=== PATIENT | female | born 1965 | race Caucasian/White ===

== ENCOUNTER → 2024-10-13 14:15 | Outpatient (REF) | payer BC, SELFPAY | LOC: RCS 14:15 | PROVIDERS: ATTENDING PHYSICIAN Internal Medicine; FAMILY PHYSICIAN Family Medicine | DX: R60.9 Edema, unspecified (principal); R07.9 Chest pain, unspecified; R06.09 Other forms of dyspnea; R00.2 Palpitations; R94.31 Abnormal electrocardiogram [ECG] [EKG] | CPT/HCPCS: 93306 ==

== ENCOUNTER → 2024-10-20 08:44 | Outpatient (REF) | payer BC, SELFPAY | LOC: RCS 08:44 | PROVIDERS: ATTENDING PHYSICIAN Internal Medicine; FAMILY PHYSICIAN Family Medicine | DX: R60.9 Edema, unspecified (principal); R07.9 Chest pain, unspecified; R06.09 Other forms of dyspnea; R00.2 Palpitations; R94.31 Abnormal electrocardiogram [ECG] [EKG] | CPT/HCPCS: 71275; 93017; Q9967 ==